=== PATIENT | female | born 1975 | race Hispanic/Latino ===

== ENCOUNTER 2021-09-20 21:52 | Emergency (ER) | payer BC, OTHER ==
[~2021-09-20] VITALS: Ht 165.1 cm; Wt 82.6 kg
[2021-09-20 22:16] LABS: APPEARANCE,URINE Cloudy (CLEAR); BILIRUBIN,URINE Negative (NEGATIVE); COLOR,URINE Yellow (YELLOW); GLUCOSE, URINE (UA) Negative (NEGATIVE); KETONES,URINE Trace mg/dL (NEGATIVE); LEUKOCYTE ESTERASE ,URINE Trace (NEGATIVE); NITRATE,URINE Negative (NEGATIVE); OCCULT BLOOD,URINE Negative (NEGATIVE); PH,URINE >=9.0 (5.0-8.0); PROTEIN,URINE Trace mg/dL (NEGATIVE)
[2021-09-20 22:26] LABS: BASOPHILS % (AUTO) 0.5 % (0.0-5.0); EOSINOPHILS % (AUTO) 0.2 % (0.0-8.0); HEMATOCRIT 43.8 % (36-48); LYMPHOCYTES % (AUTO) 11.3 % (21.0-51.0); MEAN CORPUSCULAR HEMOGLOBIN 30.6 pg (27.0-33.0); MEAN CORPUSCULAR HGB CONC 34.5 g/dL (32.0-36.0); MEAN CORPUSCULAR VOLUME 88.7 fL (79-99); NEUTROPHILS % (AUTO) 82.6 % (40.0-77.0); PLATELET COUNT (AUTO) 222 K/uL (130-400); RED BLOOD CELL COUNT(AUTO) 4.94 MIL/uL (4.00-5.50); RED CELL DISTRIBUTION WIDTH 12.1 % (11.0-15.5); WHITE BLOOD COUNT (AUTO) 15.5 K/uL (4.8-10.8)
[2021-09-20 22:29] LABS: HCG,QUAL RESULT NEGATIVE (NEGATIVE)
[2021-09-20] MEDS ORDERED: 0.9%NACL 1000ML 1,000 ML IV SCH (22:30)
[2021-09-20] MEDS ORDERED: ACETAMINOPHEN 500 MG TABLET PO ONE (22:30)
[2021-09-20] MEDS ORDERED: IBUPROFEN 800 MG TAB PO ONE (22:30)
[2021-09-20 22:31] LABS: BACTERIA,URINE Few /HPF (None Seen); SQUAMOUS EPITHELIAL CELL,UR Moderate /HPF (0-2); WBC,URINE 0-1 /HPF (0-1)
[2021-09-20 22:35] LABS: CREATININE 0.9 mg/dL (0.5-1.5); POTASSIUM 3.2 mmol/L (3.5-5.1)
[2021-09-20 22:40] LABS: ALBUMIN 4.3 g/dL (3.5-5.0)
[2021-09-20] MEDS ORDERED: POTASSIUM BICARB/CIT AC 25 MEQ TABLET.EFF PO ONE (23:00)
[2021-09-20 23:41] VITALS: BP 122/82
[2021-09-21] MEDS ORDERED: IBUP-2070 PO (00:54)
== END 2021-09-21 01:05 | disposition home or self-care (01) ==
LOC: EDH 21:52
DX: B34.9 Viral infection, unspecified (principal); Z20.822 Contact with and (suspected) exposure to COVID-19; F41.9 Anxiety disorder, unspecified; F32.A Depression, unspecified; Z79.1 Long term (current) use of non-steroidal anti-inflammatories (NSAID)
CPT/HCPCS: 36415; 71045; 74176; 80053; 81001; 81025; 83605; 85025; 87040 ×2; 87635; 87804 ×2; 96360; 99285; C9803; J7030

== ENCOUNTER → 2025-04-24 | Emergency (ER) | payer BC, OTHER ==
[~2025-04-24] VITALS: Ht 165.1 cm; Wt 86.2 kg
[~2025-04-24] MED LIST: CYCL10TA16 PO; IBUP-1492 PO; MELO-106 PO
--- NOTE | 2025-04-24 02:54 | NUR ---
UA CUP PROVIDED
[2025-04-24 03:10] VITALS: BP 122/62; PULSE 75; RESP 18; TEMP 98.8; O2SAT 99
--- NOTE | 2025-04-24 03:16 | ERN ---
General Chief Complaint: Neck Pain Stated Complaint: NECK PAIN Time Seen by MD: 03:09 History of Present Illness Initial Comments 50-year-old female with a past medical history remarkable for PTSD, generalized anxiety disorder, major depression, presents to emergency room for evaluation of neck pain. 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 States that at that time she had no pain however she went home later that day and started developing stiffness in her neck. She woke up the next day with neck pain and took Tylenol. She comes in today as the pain has not subsided pending she had like medications for the pain. No fever no cough no shortness a breath. No nausea vomiting diarrhea. No numbness or tingling bilateral lower extremities. No chest pain. Allergies: Coded Allergies: No Known Allergies (Unverified Allergy, Unknown, 09/20/21) acetaminophen (Unverified Allergy, Unknown, 04/24/25) codeine (Unverified Allergy, Unknown, 04/24/25) Home Meds Active Scripts Ibuprofen (Ibuprofen) 600 Mg Tablet, 600 MG PO Q6H PRN for PAIN, #30 TAB Prov:LEXII STEWART MD 09/21/21 Past Medical History Past Medical History: Anxiety, Depression, Hypertension, Other Medical History Other: PTSD,ADHD, ALCOHOL ABUSE Past Surgical History: Hysterectomy, Other, Surgical History Other: ORAL Family History Family History: Negative Social History Social History: Negative Musculoskeletal: (+) Neck pain Physical Exam General Appearance: (+) no apparent distress Orientation: (+) alert, (+) oriented x 3 Head/Face Trauma: No Eye: bilateral eye normal inspection, bilateral eye PERRL, bilateral eye EOMI Ear, Nose, Throat: (+) hearing grossly normal, (+) normal ENT inspection Neck: (+) normal inspection, (+) no JVD, (+) limited range of motion (Secondary to pain.), (+) tender lateral (Left side muscle spasm) Respiratory: (+) lungs clear Heart: (+) regular; (-) murmur Gastrointestinal: (+) soft, (+) non-tender Neurologic/Psychiatric: (+) normal speech, (+) no motor defecits, (+) normal mood/affect MDM 50-year-old female with musculoskeletal neck pain secondary to recent thumbs surprising. We will give pain medications at this time. And reassess. ED Course Orders Procedure Category Date Status Time Ketorolac 60mg/2ml PHA 04/24/25 Complete (Toradol 60mg/2ml) 03:30 Lidocaine (Lidocaine PHA 04/24/25 Complete Patch 4%) 03:30 Cyclobenzaprine Hcl PHA 04/24/25 Complete (Cyclobenzaprine Hcl 03:30 0.9%Nacl 1000ml (Ns PHA 04/24/25 In Process 1000ml) 03:30 Cerv Spine 2-3vws RAD 04/24/25 Taken 03:46 Current Medications Medications (Trade) Dose Ordered Sig/Mickie Route PRN Reason Start Time Stop Time Status Last Admin Dose Admin Cyclobenzaprine HCl (Cyclobenzaprine HCl) 10 mg ONCE ONCE PO 04/24/25 03:30 04/24/25 03:31 DC 04/24/25 03:18 Ketorolac Tromethamine (toRADol 60MG/ 2ML) 60 mg ONCE ONCE IM 04/24/25 03:30 04/24/25 03:31 DC 04/24/25 03:18 Lidocaine (Lidocaine Patch 4%) 1 each ONCE ONCE TP 04/24/25 03:30 04/24/25 03:31 DC 04/24/25 03:18 Sodium Chloride 1,000 ml @ 0 mls/hr Q0M IV 04/24/25 03:30 05/24/25 03:29 04/24/25 03:28 Vital Signs Date Time Temp Pulse Resp B/P (MAP) Pulse Ox O2 Delivery O2 Flow Rate FiO2 04/24/25 03:10 98.8 75 18 122/62 99 Room Air* 0 21 04/24/25 02:51 98.4 111 16 122/85 98 Room Air 0245: Status post Toradol, Flexeril, and IV fluids patient neck much improved. However now she is requesting an x-ray to rule out fracture. X-ray reviewed by me. No obvious fracture. We will discharge home at this time. All questions answered at this time. DX & DISP Disposition: Discharge Departure Impression: Primary Impression: Muscle spasms of neck Condition: Stable Scripts Meloxicam (Meloxicam) 7.5 Mg Tablet 1 TAB PO DAILY for 5 Days, #5 TAB 0 Refills Prov: ALEX VERDUZCO MD 04/24/25 Cyclobenzaprine HCl (Flexeril) 10 Mg Tab 1 TAB PO TID for muscle spasms for 7 Days, #21 TAB 0 Refills Prov: ALEX VERDUZCO MD 04/24/25 Referrals: SELF,REFERRAL (PCP) ALEX VERDUZCO MD Apr 24, 2025 03:16
[2025-04-24] MEDS: LIDOCAINE 4% ADH..PATCH TP ONE (03:18)
[2025-04-24] MEDS: CYCLOBENZAPRINE HCL 10 MG TABLET PO ONE (03:18)
[2025-04-24] MEDS: 0.9%NACL 1000ML 1,000 ML IV SCH (03:28)
[2025-04-24] MEDS: HYDROcodone/APAP 5/325 1 TAB TABLET PO ONE (05:33)
--- NOTE | 2025-04-24 05:41 | HMCIMG ---
EXAM: CR Cervical spine, 2 View. CLINICAL HISTORY: dumpster dicving, neck pain R side (msk) COMPARISON: None provided. FINDINGS: Focal kyphosis at C5-C6. BONES: No acute fracture or aggressive appearing osseous lesion. DISCS/DEGENERATIVE CHANGES: Severe degenerative disc disease at C5-C6. Spondylosis evident by small to moderate anterior osteophytes and uncovertebral joint hypertrophy at C5-C6. Mild disc disease at C6-C7. SOFT TISSUES: No prevertebral soft tissue swelling. The visualized lung apices are clear. IMPRESSION: 1. Severe degenerative disc disease at C5-C6 with focal kyphosis. 2. No acute fracture. /[place]
== END ==
LOC: EDH 02:50
DX: M62.838 Other muscle spasm (principal); M54.2 Cervicalgia; I10 Essential (primary) hypertension; F41.1 Generalized anxiety disorder; F32.9 Major depressive disorder, single episode, unspecified; F90.9 Attention-deficit hyperactivity disorder, unspecified type; Z98.890 Other specified postprocedural states; Z88.5 Allergy status to narcotic agent; Z90.710 Acquired absence of both cervix and uterus; W19.XXXA Unspecified fall, initial encounter; Y93.12 Activity, springboard and platform diving; Y92.89 Other specified places as the place of occurrence of the external cause; Y99.8 Other external cause status
CPT/HCPCS: 99284; 72040; 96372; J1885; J7030